=== PATIENT | female | born 1970 | race Caucasian/White ===

== ENCOUNTER → 2017-03-26 | Outpatient (CLI) | payer MEDICARE, OTHER ==
[~2017-03-26] MED LIST: ABILIFY PO; ACETAMINOPHEN PO; ALPRAZOLAM; ASPIRIN325 M1 PO; BACTRIM DS TABL1 TA1 PO; CALCIUM + D3 E1 EACH PO; CATAPRES0.1 M1; CHANTIX PO; COMBIPATCH 0.01 EACH TD; CYMBALTA PO; FLAGYL PO; FLONASE 0.05% N16 G1; HYDROCHLOROTH12.5 M1 PO; HYDROCODONE-APA1 T30; KEFLEX500 M1 PO; LIPITOR40 MG PO; LOVAZA1 GM; LYRICA300 MG PO; MOBIC PO; MONODOX100 MG PO; MOTRIN600 MG PO; MULTI-VITAMIN1 TAB; NAPROXEN; NEURONTIN100 MG PO; NICOTINE TRANSD14 MG EXT; ORUDIS75 M1 PO; PERCOCET 7.5-31 EACH PO; PRILOSEC20 MG PO; SOMA; TOPAMAX50 MG PO; TRAZODONE PO; VICODIN 5/500 T1 TAB PO; VOLTAREN75 MG PO; ZANTAC150 M1 PO; ZOLOFT100 MG PO
[2017-03-26 09:52] LABS: BILIRUBIN,TOTAL 0.5 mg/dL (0.2-2.0); BUN/CREATININE RATIO 21.66; CALCIUM SERUM 9.2 mg/dL (8.4-10.2); CREATININE SERUM 0.6 mg/dL (0.6-1.4); GLOM FILT RATE Estimated 108.5 mL/min (>60); POTASSIUM 3.8 mmol/L (3.5-5.1); PROTEIN TOTAL SERUM 7.5 g/dL (6.0-8.3)
[2017-03-26 14:47] LABS: FOLATE (FOLIC ACID) 17.5 ng/mL (>5.8)
== END | disposition home or self-care (01) ==
LOC: SLAB 09:07
PROVIDERS: Internal Medicine
DX: E78.5 Hyperlipidemia, unspecified (principal); M79.89 Other specified soft tissue disorders; R51 Headache; R11.2 Nausea with vomiting, unspecified
CPT/HCPCS: 36415; 80053; 80061; 82607; 82746

== ENCOUNTER 2017-05-29 11:00 | Emergency (ER) | payer MEDICARE, OTHER ==
[~2017-05-29 11:00] MED LIST changes: -CALCIUM + D3 E1 EACH PO; -CATAPRES0.1 M1; -COMBIPATCH 0.01 EACH TD; -FLAGYL PO; -FLONASE 0.05% N16 G1; -HYDROCHLOROTH12.5 M1 PO; -LIPITOR40 MG PO; -LOVAZA1 GM; -LYRICA300 MG PO; -MOBIC PO; -MONODOX100 MG PO; -MOTRIN600 MG PO; -PERCOCET 7.5-31 EACH PO; -TOPAMAX50 MG PO; -ZANTAC150 M1 PO
[2017-05-29] MEDS ORDERED: LIPITOR40 MG PO (11:16)
[2017-05-29] MEDS ORDERED: COMBIPATCH 0.01 EACH TD (11:16)
[2017-05-29] MEDS ORDERED: FLONASE 0.05% N16 G1 (11:17)
[2017-05-29] MEDS ORDERED: MONODOX100 MG PO (11:17)
[2017-05-29] MEDS ORDERED: CATAPRES0.1 M1 (11:17)
[2017-05-29] MEDS ORDERED: MOTRIN600 MG PO (11:18)
[2017-05-29] MEDS ORDERED: LYRICA300 MG PO (11:18)
[2017-05-29] MEDS ORDERED: HYDROCHLOROTH12.5 M1 PO (11:18)
[2017-05-29] MEDS ORDERED: LOVAZA1 GM (11:19)
[2017-05-29] MEDS ORDERED: FLAGYL PO (11:19)
[2017-05-29] MEDS ORDERED: MOBIC PO (11:19)
[2017-05-29] MEDS ORDERED: ZOLOFT100 MG PO (11:20)
[2017-05-29] MEDS ORDERED: PERCOCET 7.5-31 EACH PO (11:20)
[2017-05-29] MEDS ORDERED: CALCIUM + D3 E1 EACH PO (11:20)
[2017-05-29] MEDS ORDERED: ZANTAC150 M1 PO (11:20)
[2017-05-29] MEDS ORDERED: TOPAMAX50 MG PO (11:21)
[2017-05-29 12:15] LABS: BASOPHIL# 0.1 X10e3 (0-0.3); EOSINOPHIL# 0.1 X10e3 (0-0.7); EOSINOPHIL% 0.9 % (0.0-7.0); HEMOGLOBIN 14.8 gm/dL (12.0-16.0); LYMPHOCYTE# 3.5 X10e3 (1.0-3.5); MEAN CELL VOLUME 85.3 FL (83-96); MEAN CORPUSCULAR HGB CONC 32.9 g/dL (30-36); MEAN PLATELET VOLUME 9.3 FL (6.5-11.5); MONOCYTE# 0.8 X10e3 (0-1.0); NEUTROPHIL# 7.2 X10e3 (1.5-7.1); NEUTROPHIL% 61.1 % (40-75); PLATELET COUNT 281 X10e3 (140-420); RED BLOOD COUNT 5.27 X10e (3.90-5.30); RED CELL DISTRIBUTION WIDTH 14.5 % (11.0-15.5); WHITE BLOOD COUNT 11.8 X10e3 (4.0-10.5)
[2017-05-29 12:31] LABS: DIFF IND NO
[2017-05-29 12:42] LABS: BUN/CREATININE RATIO 17.5; CREATININE SERUM 0.8 mg/dL (0.6-1.4); GLOM FILT RATE Estimated 87.9 mL/min (>60); POTASSIUM 4.6 mmol/L (3.5-5.1)
== END 2017-05-29 14:31 | disposition home or self-care (01) ==
LOC: SED 11:00
PROVIDERS: Emergency Medicine
DX: N93.9 Abnormal uterine and vaginal bleeding, unspecified (principal); F17.210 Nicotine dependence, cigarettes, uncomplicated
CPT/HCPCS: 36415; 80048; 85025; 99284